=== PATIENT | male | born 1985 | race Asian ===

== ENCOUNTER 2018-07-24 01:33 | Emergency (ER) | payer MEDICAID ==
[~2018-07-24] VITALS: Ht 177.8 cm; Wt 75.8 kg
[2018-07-24] MEDS ORDERED: ANXIETY (01:40)
--- NOTE | 2018-07-24 01:46 | NUR ---
Pt ambulated to room with EDT. Pt being placed on all monitors. Pt changed into gown. Pt states that he ingested edible marijuana and smoked marijuana at appx midnight tonight. Pt states that he has never used marijuana before.
--- NOTE | 2018-07-24 01:50 | NUR ---
Dr. Waller at bedside to evaluate pt.
[2018-07-24] MEDS ORDERED: LORazepam 2 MG/ML, 1ML ONE (01:55)
--- NOTE | 2018-07-24 02:07 | NUR ---
PIV started, labs drawn. Pt medicated per APR.
[2018-07-24 02:16] LABS: BASOPHILS # (AUTO) 0.02 x10^3/uL (0-0.1); BASOPHILS % (AUTO) 0 % (0-1); EOSINOPHILS # (AUTO) 0.39 x10^3/uL (0-0.4); EOSINOPHILS % (AUTO) 5 % (1-7); LYMPHOCYTES # (AUTO) 3.92 x10^3/uL (1-3.4); LYMPHOCYTES % (AUTO) 45 % (22-44); MD NO; MEAN CORPUSCULAR HEMOGLOBIN 29.4 pg (27.5-34.5); MEAN CORPUSCULAR HGB CONC 33.3 g/dL (33.2-36.2); MEAN CORPUSCULAR VOLUME 88.4 fL (81-97); MEAN PLATELET VOLUME 7.1 fL (7.4-10.4); MONOCYTES # (AUTO) 0.58 x10^3/uL (0.2-0.8); MONOCYTES % (AUTO) 7 % (2-9); NEUTROPHILS # (AUTO) 3.76 x10^3/uL (1.8-6.8); NEUTROPHILS % (AUTO) 43 % (42-75); PLATELET COUNT 309 x10^3/uL (130-400); RED BLOOD COUNT 4.91 x10^6/uL (4.38-5.82); RED CELL DISTRIBUTION WIDTH 12.3 % (9.4-14.8)
[2018-07-24 02:28] LABS: ALANINE AMINOTRANSFERASE 25 U/L (12-78); ALBUMIN 4.4 g/dL (3.4-5.0); ANION GAP 10 mmol/L (5-15); CALCIUM 8.7 mg/dL (8.5-10.1); CHLORIDE 104 mmol/L (98-107); CREATININE 1.19 mg/dL (0.7-1.3)
[2018-07-24 02:30] LABS: ALKALINE PHOSPHATASE 94 U/L (45-117); BILIRUBIN,TOTAL 0.3 mg/dL (0.2-1.0); TOTAL PROTEIN 8.3 g/dL (6.4-8.2)
[2018-07-24] MEDS ORDERED: LORazepam 2 MG/ML, 1ML IVPush ONE (02:30)
--- NOTE | 2018-07-24 03:01 | NUR ---
Pt resting on gurney, eyes closed, appears less anxious. Pt remains on all monitors, ST noted, rate in the 120s-130s. SBAR report given to RNAmara.
--- NOTE | 2018-07-24 03:03 | NUR ---
REPORT RECEIVED FROM ELOISA FLETCHER.
--- NOTE | 2018-07-24 03:53 | NUR ---
PT SLEEPING IN [facility]. ALL MONITORS IN PLACE. CALL LIGHT WITHIN REACH. RESPS EVEN AND UNLABORED.
--- NOTE | 2018-07-24 04:48 | NUR ---
pt states "i need more time. i'm still drowsy." edmd at bedside and notified. pt still has tachycardia rate 120's on compliance monitor at this time.
--- NOTE | 2018-07-24 06:22 | NUR ---
pt still sleeping in [facility]. resps even and unlabored. pt has tachycardia rate 110's at this time.
[2018-07-24] MEDS ORDERED: POTASSIUM CHLORIDE 20 MEQ TAB.ER.PRT PO ONE (06:30)
[2018-07-24] MEDS ORDERED: POTASSIUM CHLORIDE 20 MEQ TAB.ER.PRT ONE (06:36)
--- NOTE | 2018-07-24 06:40 | NUR ---
pt medicated per emar. pt tolerated well. pt's aox4. resps even and unlabored.
[2018-07-24 06:41] VITALS: BP 110/59
--- NOTE | 2018-07-24 06:42 | NUR ---
PT GIVEN DC INSTRUCTIONS. PT'S AOX4. RESPS EVEN AND UNLABORED. PT AMB TO DC WITH STEADY GAIT. NO ACUTE DISTRESS AT DC.
== END 2018-07-24 06:47 | disposition home or self-care (01) ==
LOC: ED 06:30
DX: F12.929 Cannabis use, unspecified with intoxication, unspecified (principal); R00.2 Palpitations; Z72.9 Problem related to lifestyle, unspecified; R00.0 Tachycardia, unspecified; F41.9 Anxiety disorder, unspecified
CPT/HCPCS: 36415; 80053; 80307; 85025; 93005; 96374; 99284; J2060